=== PATIENT | male | born 1990 | race Caucasian/White ===

== ENCOUNTER → 2016-12-10 | Outpatient (CLI) | payer OTHER ==
[~2016-12-10] MED LIST: ADVIN25/60 INH; ALBU1AER9 INH; BUPR200T2 PO; DSY/50 PO; EPP3/2; FLUO20CA20 PO; FLUT0.15 INH; FLUT110A INH; IBUP-103 PO; LORA-741 PO; MONT1TAB3 PO
--- NOTE | 2016-12-10 19:00 | DIAGNOSTIC IMAGING REPORT ---
MRI CERVICAL WITHOUT CONTRAST CLINICAL HISTORY: Neck pain with left arm radiculopathy. Headache dizziness TECHNIQUE: Sagittal and axial T1, T2 and STIR images were obtained. COMPARISON STUDY: 04/08/2015 There are no suspicious areas of marrow replacement. No intrinsic cervical cord lesions are visualized. C2-3: There is no evidence of disc bulge or focal herniation. There is no spinal or foraminal stenosis. C3-4: There is no evidence of disc bulge or focal herniation. There is no spinal or foraminal stenosis. C4-5: There are no disc bulges or focal herniations. There is no spinal or foraminal stenosis. C5-6 :There is a circumferential disc bulge. There is no significant foraminal narrowing.. There is no spinal stenosis. C6-7: There is a minor circumferential disc bulge present. There is no significant spinal or foraminal stenosis C7-T1: There is no evidence of disc bulge or focal herniation. There is no evidence of spinal or foraminal stenosis. IMPRESSION:Mild circumferential disc bulges at the C5-6 and C6-7 levels. No evidence of significant spinal or foraminal stenosis. Electronically signed by: Ben Mcintyre M.D. 12/10/2016 6:58 PM Dictated Date/Time: 12/10/2016 6:54 PM
== END | disposition home or self-care (01) ==
LOC: C.MRI 18:00
PROVIDERS: ATTEND Orthopaedic Surgery Orthopaedic Surgery of the Spine
DX: M47.22 Other spondylosis with radiculopathy, cervical region (principal)